=== PATIENT | female | born 1985 | race Caucasian/White ===

== ENCOUNTER 2025-07-19 01:34 | Day surgery (SDC) | payer OTHER, SELFPAY ==
[2025-07-10 09:53] VITALS: BMI 29.9
--- NOTE | 2025-07-10 10:03 | PC.NURSE ---
Report to the Outpatient Waiting Room, entrance under the green pavilion located off [facility], at time _0600_ on date _[id number]_. Planned Procedure Time: _0730_.? Time changes happen often and if your time is changed the preop area will call you the afternoon before. - You and your visitor will be asked to self-screen and do not enter if you have any COVID symptoms. Please call surgeon if you need to reschedule. - A mask is optional within the hospital at this time. Patients may have clear liquids (water, carbonated beverages, clear teas, apple juice) until 3 hours prior to surgery with a maximum of 20 ounces. - No food from midnight until time of surgery and no smoking, or chewing tobacco (or any form of nicotine). No chewing gum, candy or mints. Take only the following medications with a SIP of water on the morning of surgery: __Sertraline and if needed Alprazolam DO NOT STOP ANY OF YOUR OTHER PRESCRIPTION MEDICATIONS PRIOR TO SURGERY EXCEPT THE FOLLOWING Hold all vitamins and supplements for 3 days per anesthesiologist. Medications to discontinue per physician Date to take last dose Please no make-up, nail luxembourger, hairspray, perfume, deodorant, or body powder the day of surgery.? No jewelry (including any body piercings) or valuables the day of surgery, leave them at home.? Please take a shower or bath the night before, or the morning of, surgery with an antibacterial soap.? Wear comfortable, loose fitting clothing.? - Jewelry must be removed prior to entering the operating room.? Rings and piercings that are not removed may be cut off. - The hospital will not accept responsibility for valuables.? - Please leave all valuables, including medications, at home the day of surgery. If you are going home after surgery, a licensed cdl flatbed truck driver must drive you home.? - NO public transportation without another adult if you receive anesthesia. - We recommend that an adult stay with you for 24 hours following discharge. - We also recommend that you do not drive, make important decision, drink alcoholic beverages, or take any drugs that were not prescribed by your health care provider for at least 24 hours after your discharge time. Follow any additional instructions given to you from your surgeon. Telephone instructions given to __Romi__and asked if any additional questions and then verbalized understanding. Patient advised to call surgeon office or pre surgery nurse liaison [phone] if any additional questions.
--- OUTSIDE RECORDS SUMMARY | 2025-07-17 04:40 | XMS_ITS ---
Author Organization Formerly [facility] [place] ([address]) Address [address] [place] [address] Care Team Providers Care Log Chipper Operator Name Role Phone Nery Locke Primary Care Provider Tisha Medina Unavailable [phone] Emmett Harris Unavailable [phone] REASON FOR VISIT SCIT - Traditional Schedule Allergy immunotherapy Encounters Encounter Location Date Provider Diagnosis [facility] [address] [place] [address] 07/17/2025 Emmett Harris Allergic rhinitis due to pollen J30.1 ; Allergic rhinitis due to animal (cat) (dog) hair and dander J30.81 ; Other allergic rhinitis J30.89 and Other chronic allergic conjunctivitis H10.45 Assessments Encounter Date Diagnosis (ICD Code) Assessment Notes Treatment Notes Treatment Clinical Notes Section Notes 07/17/2025 Allergic rhinitis due to pollen (ICD-10 - J30.1) 07/17/2025 Allergic rhinitis due to animal (cat) (dog) hair and dander (ICD-10 - J30.81) 07/17/2025 Other allergic rhinitis (ICD-10 - J30.89) 07/17/2025 Other chronic allergic conjunctivitis (ICD-10 - H10.45) Plan Of Treatment Next Appt Details Follow Up: 1 Week, Reason: Provider Name:Emmett Harris , 07/24/2025 10:40:00 AM, [address] [place], [address], Progress Notes * Jacqui MENDOZAhDOB: 4 (40 yo F)Acc No.[id number]:07/17/2025 SCIT-Aeroallergen Patient: Romi BANGURA Provider: Shady Harris MD :1985 A ge:39 Y S ex:Female Date:07/17/2025 Address:[address] [place], [place] [id number] Pcp:MADHU Dexter Subjective: * Chief Complaints: * 1 . SCIT - Traditional Schedule Allergy immunotherapy. * HPI: * Introduction: The patient is here for scheduled immunotherapy. Please see the attached specialty form regarding the specifics of the administration of these vaccines. As per our protocol, they must undergo a screening health questionnaire (medication changes, reaction(s) to last immunotherapy dose(s), current health status, ACT (if appropriate), self-injectable epinephrine on patient(?) and peak flow (if appropriate)). Also, the patient must wait in our office for 30 minutes after receiving the vaccine(s). Furthermore, every patient must have an epinephrine pen (self-injectable) with them at the time of administration--and carry if for the following 1.5 hours after they leave our office. The patient must also have taken their antihistamine the day of the injection, preferably 2 hours prior. The consent form for SCIT (subcutaneous immunotherapy) is on file. * Medical History: Objective: * Vitals: Assessment: * Assessment: 1. A llergic rhinitis due to pollen - J30.1 (Primary) 2 . A llergic rhinitis due to animal (cat) (dog) hair and dander - J30.81 3 . O ther allergic rhinitis - J30.89 4 . O ther chronic allergic conjunctivitis - H10.45 Plan: * Treatment: * Follow Up: 1 Week * Billing Information: * Visit Code: * Procedure Codes: 39883 IMMUNOTHERAPY INJECTIONS. * Electronic signature of Alexus Harris MD, FAAAAI on 2025 at 01:37 AM CDT Sign off status: Pending * Provider: Shady Harris MD Date: 0 07/17/2025 Generated for Jessica watson/Sawyer/Lesa on: 2025 01:37 AM CDT History and Physical Notes * HPI (History of Present Illness) Category Sub-Category Detail Notes Category Not es *Introduction The patient is here for scheduled immunotherapy. Please see the attached specialty form regarding the specifics of the administration of these vaccines. As per our protocol, they must undergo a screening health questionnaire (medication changes, reaction(s) to last immunotherapy dose(s), current health status, ACT (if appropriate), self-injectable epinephrine on patient(?) and peak flow (if appropriate)). Also, the patient must wait in our office for 30 minutes after receiving the vaccine(s). Furthermore, every patient must have an epinephrine pen (self-injectable) with them at the time of administration--and carry if for the following 1.5 hours after they leave our office. The patient must also have taken their antihistamine the day of the injection, preferably 2 hours prior. The consent form for SCIT (subcutaneous immunotherapy) is on file.
[2025-07-19] VITALS (12 sets, daily range): BP systolic 117–147; BP diastolic 70–97; PULSE 78–114; RESP 10–18; TEMP 36.3–36.4; O2SAT 91–100
--- OUTSIDE RECORDS SUMMARY | 2025-07-19 01:37 | XMS_ITS | Clinical Summary ---
Author Organization [facility] Address [address] [address] Care Team Providers Care Security Installation Technician Name Role Phone Unavailable Primary Care Provider Unavailabl e Allergies No known active allergies Medications tirzepatide (Mounjaro) 2.5 mg/0.5 mL Pen Injector Inject 2.5 mg by subcutaneous injection every 7 days. 2 mL 10/08/2022 3:57 PM ETHNOARCHAEOLOGIST Active Social History Tobacco Use Types Packs/Day Years Used Date Smoking Tobacco: Never Assessed Comments Unknown Sex and Gender Information Value Date Recorded Sex Assigned at Not on file Legal Sex Female 3:34 PM ETHNOARCHAEOLOGIST Gender Identity Not on file Sexual Orientation Not on file Plan of Treatment Health Maintenance Due Date Last Done Comments DTAP/TDAP/TD VACCINES (1 - Tdap) 2003 HEPATITIS B VACCINES (1 of 3 - 19+ 3-dose series) 06/26 HPV/Cotest (21-29) 2005 HPV VACCINES (1 - 3-dose SCDM series) 2011 CERVICAL CANCER SCREENING 2014 HPV/Cotest (30-65) 2014 PAP SMEAR 2014 BREAST CANCER SCREENING 2024 INFLUENZA VACCINE (#1) 2025 Insurance RX [employer] RX Member Subscriber Plan / Payer (Ef fective 2022-Present) Name:Romi Draper Relation to Subscriber:Self Name:Romi Draper Subscriber ID:Not on file Payer ID:Not on file Group ID:[id number] Type:RX Commercial Address: [employer] Member Subscriber Plan / Payer (Ef fective for All Dates) Name:Marisadominique Romi Relation to Subscriber:Not on file Payer ID:Not on file Type:RX Commercial Address: [employer] Commercial [[id number]
--- OUTSIDE RECORDS SUMMARY | 2025-07-19 01:37 | XMS_ITS | Clinical Summary ---
Author Organization [facility] Address [address] [place] [address] Care Team Providers Care Lead Generation Specialist Name Role Phone Ricky La MD Primary Care Provider Unav ailable Source Comments [facility],non-owned Affiliates and Associated Physician Practices is amultiple site organization consisting of ambulatory clinics and hospital sitesin [place], [place], [place] and [place]. This disclosure is being madepursuant to the Care Everywhere program and may not contain all information available regarding this patient. Last updated 18.[facility] Allergies No known active allergies Medications * Be aware that medications may not be up to date on this document. Alwaysverify current medications with the patient. VITAMINS PO Take by mouth. Active ALPRAZolam (XANAX) 0.5 MG tablet Take one-half to one tablet by mouth once daily as needed. 02/02/2019 Active cetirizine (ZYRTEC ALLERGY) 10 MG gel capsule Active Multiple Vitamin (MULTI VITAMIN PO) Active sertraline (ZOLOFT) 50 MG tablet TAKE ONE AND ONE-HALF TABLETS BY MOUTH EVERY DAY 03/13/2019 Active Active Problems Problem Noted Date Diagnosed Date History of toxoplasmosis- IgG & IgM positive History of miscarriage 11/15/2012 Family History Medical History Relation Name Comments Diabetes Father Hypercholesterolemia Father Hypertension Father Hypertension Maternal Grandfather Diabetes Maternal Uncle Diabetes Paternal Aunt Heart Disease Paternal Grandfather Hypercholesterolemia Paternal Grandfather Hypertension Paternal Grandfather Cancer Paternal Grandmother cervica l Arthritis Neg Hx Bleeding Disorders Neg Hx Clotting Disorder Neg Hx Genetic/Metabolic Disease Neg Hx Kidney Disease Neg Hx Multiple Births Neg Hx Labor Neg Hx Sickle Cell Anemia Neg Hx Stroke Neg Hx Toxemia Neg Hx Tuberculosis Neg Hx Twins Neg Hx Relation Name Status Comments Brother Alive Father Alive Maternal Grandfather Alive Maternal Grandmother mva Maternal Uncle Mother Alive Paternal Aunt Paternal Grandfather Alive Paternal Grandmother Sister Alive Social History Tobacco Use Types Packs/Day Years Used Date Smoking Tobacco: Former Cigarettes Smokeless Tobacco: Never Alcohol Use Standard Drinks/Week Comments No 0 (1 standard drink = 0.6 oz pur e alcohol) Comments No Sex and Gender Information Value Date Recorded Sex Assigned at Female 01/14/2022 1:18 PM CDT Legal Sex Female 3:43 PM NICKEL OPERATOR Gender Identity Female 01/14/2022 1:18 PM CDT Sexual Orientation Not on file Last Filed Vital Signs Vital Sign Reading Time Taken Comments Blood Pressure 115/60 02/04/2016 12:57 PM CDT Pulse 105 02/04/2016 12:56 PM CDT Temperature - - Respiratory Rate 18 02/04/2016 12:57 PM CDT Oxygen Saturation 98% 11/18/2012 1:41 PM NICKEL OPERATOR Inhaled Oxygen Concentration - - Weight 70.3 kg (155 lb) 02/04/2016 12:57 PM CDT Height 154.9 cm (5' 1) 02/04/2016 12:56 PM CDT Body Mass Index 29.29 02/04/2016 12:56 PM CDT Plan of Treatment Health Maintenance Due Date Last Done Comments MAMMOGRAM 1985 HIV SCREENING 1999 HEPATITIS C SCREENING 07/15/2002 DTAP/TDAP/TD VACCINES (1 - Tdap) 2003 HEPATITIS B VACCINE (1 of 3 - 19+ 3-dose series) 2003 HPV VACCINE (1 - 3-dose SCDM series) 2011 LIPID TESTING 02/03/2024 02/02/2019 DEPRESSION SCREENING 10/25/2024 COVID-19 VACCINE (1 - 2023-2 5 season) 2025 INFLUENZA VACCINE (#1) 2025 08/10/2018 ZOSTER VACCINE (1 of 2) 2034 HIB VACCINE Aged Out No longer eligi ble based on patient's age to complete this topic MENINGOCOCCAL (Group B) VACC INE SHARED DECISION-MAKING Aged Out No longer eligibl e based on patient's age to complete this topic MENINGOCOCCAL GROUPS A/C/Y/W VACCINE Aged Out No longer eligible b ased on patient's age to complete this topic PNEUMOCOCCAL VACCINE Aged Out No long er eligible based on patient's age to complete this topic Insurance AETNA AETNA ANTHEM AETNA Care Teams Lead Generation Specialist Relationship Specialty Start Date End Date Ricky La MD PCP - General Family Medicine 02/04/16
--- OUTSIDE RECORDS SUMMARY | 2025-07-19 01:37 | XMS_ITS | Patient Health Record ---
Author Organization [facility] [place] ([address]) Address [address] [place] [address] Care Team Providers Care Gas Mask Inspector Name Role Phone Shiraz CHAWLA-Nery Santoro Primary Care Provider Tisha Mednia Unavailable [phone] Emmett Harris Unavailable [phone] Saul Hay Unavailable [phone] Archie Michele Unavailable [phone] Allergies No Known Allergies Reason For Referral No Information Medications Medication SIG (Take, Route, Frequency, Duration) Notes Start Date End Date Status EPIPEN 2-DM 0.3 mg as directed intramuscularly once; Duration: 30 days Active busPIRone HCl 10 MG 1 tab(s) orally 2 times a day; Duration: 30 day(s) 08/30/2023 Not-Taking BUSPIRONE 10 mg 1 tab(s) orally 2 times a day; Duration: 30 day(s) 08/30/2023 Not-Taking CHLORTHALIDONE 25 mg ; Duration: 90 Not-Taking SERTRALINE 100 mg 1 tab(s) orally once a day; Duration: 30 days 03/18/2021 Not-Taking Chlorthalidone 25 MG ; Duration: 90 Not-Taking Fluticasone Propionate 50 MCG/ACT 2 sprays intranasally once a day; Duration: 30 day(s) Not-Taking NASAL WASHES N/A as directed intranasally as needed; Duration: 30 Active VITAMIN D3 125 mcg 1 cap(s) orally once a day Not-Taking CETIRIZINE HYDROCHLORIDE 10 mg 1 tab(s) orally once a day Active EPIPEN 2-DM 0.3 mg as directed intramuscularly once; Duration: 30 days Not-Taking SIT (TRADITIONAL) variable per schedule SC per schedule; Duration: to be determined Active AUVI-Q 0.3 mg 0.3 mg intramuscularly once; Duration: 30 days Not-Taking FLUTICASONE PROPIONATE 50 mcg/inh 2 sprays intranasally once a day; Duration: 30 day(s) Active XANAX 0.5 mg 1 tab(s) orally 3 times a day Not-Taking Auvi-Q 0.3 MG/0.3ML 0.3 mg intramuscularly once; Duration: 30 days Active Xanax 0.5 MG 1 tab(s) orally 3 times a day Active EpiPen 2-Dm 0.3 mg as directed intramuscularly once; Duration: 30 days Active Adderall XR 5 MG as directed Orally 04/16/2025 Active Sertraline HCl 50 MG 1 tab(s) orally once a day; Duration: 30 days 03/18/2021 Active Vitamin D3 125 MCG 1 CAP(S) ORALLY ONCE A DAY *Please review and pick correct strength-formula tion from [facility] options. If intended option is not shown, discontinue and re-order from Quick Search* Active Cetirizine HCl 10 MG 1 tab(s) orally once a day Active Immunizations Vaccine Route Administration Date Status Comme nts Flucelvax Unknown 08/02/2019 Refused NOC Flucelevax Quadrivalent Unknown 08/27/2020 Administ ered Covid 19 (Pfizer) Unknown 10/10/2020 Administered Covid 19 (Pfizer) Unknown 11/01/2020 Administered Social History Tobacco Use: Social History Observation Description Date Details (start date - stop date) Former Smoker NA - NA Smoking Smart Form: Question Answer Notes Are you a: former smoker How long it has been since you last smoked? 5-10 years Tobacco Control (Standard) Question Answer Notes Tobacco use: Former smoker Problems Problem Type SNOMED Code ICD Code Onset Dates Problem Status W/U Status Risk Notes Problem Chronic allergic conjunctivitis (06856715) Other chronic allergic conjunctivitis (H10.45) Active confirmed Problem Essential hypertension (36792510) Essential (primary) hypertension (I10) Active confirmed Problem Allergic rhinitis caused by pollen (disorder) (49473885) Allergic rhinitis due to pollen (J30.1) Active confirmed Problem Allergic rhinitis caused by animal hair and dander (494442352326915) Allergic rhinitis due to animal (cat) (dog) hair and dander (J30.81) Active confirmed Problem Allergic rhinitis (70220217) Other allergic rhinitis (J30.89) Active confirmed Problem Allergic rhinitis caused by animal hair and dander (241228946310660) Allergic rhinitis due to animal (cat) (dog) hair and dander (J30.81) Active confirmed Problem Elevated blood pressure reading without diagnosis of hypertension (087263311) Elevated blood-pressure reading, without diagnosis of hypertension (R03.0) Active confirmed Vital Signs Blood pressure diastolic 87 mm Hg 04/16/2025 Oximetry 98 % 04/16/2025 Height 62.5 in 04/16/2025 Blood pressure systolic 123 mm Hg 04/16/2025 Weight 158.8 lbs 04/16/2025 BMI 28.58 kg/m2 04/16/2025 Encounters Encounter Location Date Provider Diagnosis [address] [address] 06/12/2025 Emmett Steven Allergic rhinitis due to pollen J30.1 ; Allergic rhinitis due to animal (cat) (dog) hair and dander J30.81 ; Other allergic rhinitis J30.89 and Other chronic allergic conjunctivitis H10.[address] [address] 05/15/2025 Emmett Steven Allergic rhinitis due to pollen J30.1 ; Allergic rhinitis due to animal (cat) (dog) hair and dander J30.81 ; Other allergic rhinitis J30.89 and Other chronic allergic conjunctivitis H10.[address] [address] 03/20/2025 Emmett Steven Allergic rhinitis due to pollen J30.1 ; Allergic rhinitis due to animal (cat) (dog) hair and dander J30.81 ; Other allergic rhinitis J30.89 and Other chronic allergic conjunctivitis H10.[address] [address] 02/20/2025 Emmett Steven Allergic rhinitis due to pollen J30.1 ; Allergic rhinitis due to animal (cat) (dog) hair and dander J30.81 ; Other allergic rhinitis J30.89 and Other chronic allergic conjunctivitis H10.45 [facility] [address] [place] [address] 01/22/2025 Emmett Harris Allergic rhinitis due to pollen J30.1 ; Allergic rhinitis due to animal (cat) (dog) hair and dander J30.81 ; Other allergic rhinitis J30.89 and Other chronic allergic conjunctivitis H10.45 [facility] [place] [address] [place] [address] 12/18/2024 Emmett Harris Allergic rhinitis due to pollen J30.1 ; Allergic rhinitis due to animal (cat) (dog) hair and dander J30.81 ; Other allergic rhinitis J30.89 and Other chronic allergic conjunctivitis H10.45 [facility] [address] [place] [address] 11/15/2024 Emmett Harris Allergic rhinitis due to pollen J30.1 ; Allergic rhinitis due to animal (cat) (dog) hair and dander J30.81 ; Other allergic rhinitis J30.89 and Other chronic allergic conjunctivitis H10.45 [facility] - [place] [address] [place] [address] 11/09/2024 Emmett Harris Allergic rhinitis due to pollen J30.1 ; Allergic rhinitis due to animal (cat) (dog) hair and dander J30.81 ; Other allergic rhinitis J30.89 and Other chronic allergic conjunctivitis H10.45 [facility] [address] [place] [address] 11/01/2024 Emmett Harris Allergic rhinitis due to pollen J30.1 ; Allergic rhinitis due to animal (cat) (dog) hair and dander J30.81 ; Other allergic rhinitis J30.89 and Other chronic allergic conjunctivitis H10.45 [facility] [place] [address] [place] [address] 09/26/2024 Emmett Harris Allergic rhinitis due to pollen J30.1 ; Allergic rhinitis due to animal (cat) (dog) hair and dander J30.81 ; Other allergic rhinitis J30.89 and Other chronic allergic conjunctivitis H10.45 [facility] [place] [address] [place] [address] 08/21/2024 Emmett Harris Allergic rhinitis due to pollen J30.1 ; Allergic rhinitis due to animal (cat) (dog) hair and dander J30.81 ; Other allergic rhinitis J30.89 and Other chronic allergic conjunctivitis H10.45 [facility] [address] [place] [address] 04/16/2025 Archie Michele Allergic rhinitis due to pollen J30.1 ; Allergic rhinitis due to animal (cat) (dog) hair and dander J30.81 ; Other allergic rhinitis J30.89 ; Other chronic allergic conjunctivitis H10.45 ; Pruritus, unspecified L29.9 and Essential (primary) hypertension I10 Assessments Encounter Date Diagnosis (ICD Code) Assessment Notes Treatment Notes Treatment Clinical Notes Section Notes 08/21/2024 Allergic rhinitis due to pollen (ICD-10 - J30.1) 09/26/2024 Allergic rhinitis due to pollen (ICD-10 - J30.1) 11/01/2024 Allergic rhinitis due to pollen (ICD-10 - J30.1) 11/09/2024 Allergic rhinitis due to pollen (ICD-10 - J30.1) 11/15/2024 Allergic rhinitis due to pollen (ICD-10 - J30.1) 12/18/2024 Allergic rhinitis due to pollen (ICD-10 - J30.1) 01/22/2025 Allergic rhinitis due to pollen (ICD-10 - J30.1) 02/20/2025 Allergic rhinitis due to pollen (ICD-10 - J30.1) 03/20/2025 Allergic rhinitis due to pollen (ICD-10 - J30.1) 04/16/2025 Allergic rhinitis due to pollen (ICD-10 - J30.1) Romi clearly suffers from atopic disease based upon our prior skin testing. Accordingly, we have introduced a new, aggressive medication regimen, discussed nasal washes and allergy-specific avoidance measures. She continues on MM since 09/13. Denies large local reactions since last visit. Using topical hydrocortisone and ice packs with benefit. Discussed increasing dosing in peak seasons PRN as she reported increase in sneezing, ocular pruritus 1 week prior to dosing this past Fall. Today also reporting increased pruritus 1-2 days prior to last month's SCIT dosing. Dosing tolerated today w/o issues. -Continue medications as listed above. -Recommend increasing SCIT frequency to Q3 week intervals during peak seasons. -AIE on hand. Patient was instructed that epinephrine needs to be carried to each immunotherapy visit and should be carried 2 hrs after dosing. -Return in 1 YEAR for interval evaluation 05/15/2025 Allergic rhinitis due to pollen (ICD-10 - J30.1) 06/12/2025 Allergic rhinitis due to pollen (ICD-10 - J30.1) 04/16/2025 Allergic rhinitis due to animal (cat) (dog) hair and dander (ICD-10 - J30.81) Follow allergen avoidance, meds and continue SCIT as an adjunctive treatment to current regimen 06/12/2025 Allergic rhinitis due to animal (cat) (dog) hair and dander (ICD-10 - J30.81) 05/15/2025 Allergic rhinitis due to animal (cat) (dog) hair and dander (ICD-10 - J30.81) 04/16/2025 Other allergic rhinitis (ICD-10 - J30.89) Follow allergen avoidance, meds and continue SCIT as an adjunctive treatment to current regimen 03/20/2025 Allergic rhinitis due to animal (cat) (dog) hair and dander (ICD-10 - J30.81) 02/20/2025 Allergic rhinitis due to animal (cat) (dog) hair and dander (ICD-10 - J30.81) 01/22/2025 Allergic rhinitis due to animal (cat) (dog) hair and dander (ICD-10 - J30.81) 12/18/2024 Allergic rhinitis due to animal (cat) (dog) hair and dander (ICD-10 - J30.81) 11/15/2024 Allergic rhinitis due to animal (cat) (dog) hair and dander (ICD-10 - J30.81) 11/09/2024 Allergic rhinitis due to animal (cat) (dog) hair and dander (ICD-10 - J30.81) 11/01/2024 Allergic rhinitis due to animal (cat) (dog) hair and dander (ICD-10 - J30.81) 09/26/2024 Allergic rhinitis due to animal (cat) (dog) hair and dander (ICD-10 - J30.81) 08/21/2024 Allergic rhinitis due to animal (cat) (dog) hair and dander (ICD-10 - J30.81) 08/21/2024 Other allergic rhinitis (ICD-10 - J30.89) 09/26/2024 Other allergic rhinitis (ICD-10 - J30.89) 11/01/2024 Other allergic rhinitis (ICD-10 - J30.89) 11/09/2024 Other allergic rhinitis (ICD-10 - J30.89) 11/15/2024 Other allergic rhinitis (ICD-10 - J30.89) 12/18/2024 Other allergic rhinitis (ICD-10 - J30.89) 01/22/2025 Other allergic rhinitis (ICD-10 - J30.89) 02/20/2025 Other allergic rhinitis (ICD-10 - J30.89) 03/20/2025 Other allergic rhinitis (ICD-10 - J30.89) 04/16/2025 Other chronic allergic conjunctivitis (ICD-10 - H10.45) Given ocular signs and symptoms I encouraged allergy avoidance measures and meds as above. If symptoms persist, consider adding additional medications including intraocular antihistamine/mast cell stabilizer, PRN and continue SCIT as an adjunctive measure 05/15/2025 Other allergic rhinitis (ICD-10 - J30.89) 06/12/2025 Other allergic rhinitis (ICD-10 - J30.89) 05/15/2025 Other chronic allergic conjunctivitis (ICD-10 - H10.45) 06/12/2025 Other chronic allergic conjunctivitis (ICD-10 - H10.45) 04/16/2025 Pruritus, unspecified (ICD-10 - L29.9) Full body itching that improved with SCIT dosing and no interval recurrence. Also reporting ongiong, intermittent itching to specific area on mid-back, in between shoulder blades. Of note, this also improved with SCIT dosing. No evidence of rash, urticaria or other skin changes. Current products consist of Olay moisturizer, Gain laundry, Bounce dryer sheets, Olay soap. - Recommend regimen of scent-free and dye-free products and ALl Free and Clear Laundry detergent. Avoid dryer sheets. Vanicream samples given. - Consider laboratory workup for ongoing symptoms pending dermatology evaluation. - Fiollow-up in 12 months. 03/20/2025 Other chronic allergic conjunctivitis (ICD-10 - H10.45) 02/20/2025 Other chronic allergic conjunctivitis (ICD-10 - H10.45) 01/22/2025 Other chronic allergic conjunctivitis (ICD-10 - H10.45) 12/18/2024 Other chronic allergic conjunctivitis (ICD-10 - H10.45) 11/15/2024 Other chronic allergic conjunctivitis (ICD-10 - H10.45) 11/09/2024 Other chronic allergic conjunctivitis (ICD-10 - H10.45) 11/01/2024 Other chronic allergic conjunctivitis (ICD-10 - H10.45) 09/26/2024 Other chronic allergic conjunctivitis (ICD-10 - H10.45) 08/21/2024 Other chronic allergic conjunctivitis (ICD-10 - H10.45) 04/16/2025 Essential (primary) hypertension (ICD-10 - I10) BP elevated today without symptoms of urgency or emergency. Continue serial checks and follow-up with PCP 04/16/2025 Other Plan Of Treatment Next Appt Details Provider Name:Emmett JimenesElizabet Harris , 07/24/2025 10:40:00 AM, [address] [place] [address], [phone], Insurance Providers Payer Name Payer Address Payer Phone Subscriber Number Group Number Insured Name Patient Relationship to Insured Coverage Start Date Coverage End Date [facility] [address] [address] [place], [place] [phone] [id number] Romi Draper Self - patient is the insured [employer] [facility] [address] [place] [address] [id number] William Draper Spouse - patient is the spouse of the insured Medical (General) History Medical History History ICD Code Anxiety Depression Spinal Meningitis Essential (primary) hypertension I10 Surgical History Surgery Date(Month/Year) Carpal Tunnel (Right wrist) 10/20/2013 lumpectomy 04/2024 Hospitalization History Reason Date(Month/Year) Palpitations/Syncope 05/07/2010 Vertigo 06/17/2017 Child 08/05/2016 Child 06/15/2013
--- OUTSIDE RECORDS SUMMARY | 2025-07-19 01:37 | XMS_ITS | Patient Health Record ---
Author Organization [facility] Address [address] [place], [place] [id number] Care Team Providers Care Discharge Rn Name Role Phone JESSEE ALFORD Unavailable [phone] ShirazNery Unavailable Unavailable Reason For Referral No Information Medications Medication SIG (Take, Route, Frequency, Duration) Notes Start Date End Date Status sertraline 100 MG Oral Tablet [Zoloft] ORAL sertraline 100 MG Oral Tablet [Zoloft]Original Medicationsertraline 100 MG Oral Tablet [Zoloft] *Reorder from [employer] for eRx and Interaction Alerts* 08/28/2014 Active Cyclessa 28 Day Pack ORAL Cyclessa 28 Day PackOriginal MedicationCyclessa 28 Day Pack *Reorder from [facility] for eRx and Interaction Alerts* 08/28/2014 Active Plan Of Treatment No Information Insurance Providers Payer Name Payer Address Payer Phone Subscriber Number Group Number Insured Name Patient Relationship to Insured Coverage Start Date Coverage End Date Continuous Improvement Manager s Health Plan [address] [id number] IRISH MENDOZA Self - patient is the insured [facility] [employer] [address] [place] [phone] [id number] PAULINA MENDOZA Spouse - patient is the spouse of the insured
[2025-07-19] MEDS: LACTATED RINGERS 1,000 ML 30 ML IV CONT ×2 (06:30→10:09)
[2025-07-19] MEDS: TRANEXAMIC ACID 1,000MG/ISO100 1,000 MG/100 ML BAG 200 MG IVPB (06:32)
--- NOTE | 2025-07-19 06:54 | WPDANESEPPF ---
Anes - Initial Pre Proc Eval Procedure: Operation Date: 07/19/25 07:30 Proposed Procedures p Bilateral Breast Mastopexy - José Miguel Pierce MD s Bilateral Breast Augmentation - José Miguel Pierce MD Date/Time: 07/19/25 06:54 Surgeon: José Miguel Pierce MD Pre Op Diagnosis: Breast Ptosis, Micromastia Patient Data Age: 40 Gender: F Height: 1.55 m Weight: 73.4 kg Last Vital Signs Temp 36.3 C L 07/19/25 06:10 Pulse 80 07/19/25 06:10 Resp 18 07/19/25 06:10 BP 138/95 H 07/19/25 06:10 Pulse Ox 98 07/19/25 06:10 O2 Del Method Room Air 07/19/25 06:10 Allergies Allergy/AdvReac Type Severity Reaction Status Date / Time No Known Allergies Allergy Verified 07/19/25 06:43 Home Medications ?Medication ?Instructions ?Recorded ?Confirmed ?Type alprazolam 0.5 mg tablet 0.5 mg PO QID PRN anxiety 07/10/25 07/19/25 History brexpiprazole 0.5 mg tablet 0.5 mg PO DAILY 07/10/25 07/19/25 History (Rexulti) cetirizine 10 mg tablet (Zyrtec) 10 mg PO DAILY 07/10/25 07/19/25 History sertraline 100 mg tablet 100 mg PO DAILY 07/10/25 07/19/25 History Laboratory Tests 07/19/25 06:15 Cotinine Negative Patient hx anesthesia problems: none Family hx anesthesia problems: none Results Review: All pre-operative results and documents have been reviewed as part of the pre-operative evaluation. [facility] Past Medical History Medical History (Updated 07/19/25 @ 06:55 by Zuhair Gerardo MD) Paroxysmal SVT (supraventricular tachycardia) Obesity Surgical History Surgical History H/O cardiac radiofrequency ablation Social History Social History Years smoked: 20 Smoking status: Former smoker Tobacco type: cigarettes Smoking end date: 07/10/23 Alcohol intake: current Living arrangements: with family Spiritual care concerns: No Anes - Eval Final PreProcedure Day of Procedure 07/19/25 06:54 Patient weight: obese Heart: regular rate and rhythm Lungs: clear to auscultation Airway: Mallampati scale class II Neurological: alert and oriented Last oral intake: >/= 8 hours ASA classification: II Emergent: no Anesthetic plan: proceed Anesthesia type and monitoring: general LMA and standard monitoring Results Review: All pre-operative results and documents have been reviewed as part of the pre-operative evaluation. Informed Consent: The patient's anesthetic plan and its attendant risks and benefits were discussed with the patient/family/POA. Questions were solicited and answers provided to the satisfaction of the patient/family/POA.
[2025-07-19] MEDS: SCOPOLAMINE 1 MG PATCH 1 PATCH TRANSDERM (07:25)
--- NOTE | 2025-07-19 07:26 | WPDHPUPDATE1 ---
History and Physical Update Update Date/Time: 07/19/25 07:26 History and Physical has been reviewed, including an updated exam of the patient. There are NO changes in the patient's condition. Risks, benefits, and alternatives have been discussed and questions answered. Patient agrees to proceed with procedure.
--- NOTE | 2025-07-19 07:26 | W.PM.PROC2 ---
Procedure Note - Detailed Date of Procedure 07/19/25 Pre-op Diagnosis Breast Ptosis, Micromastia Post-op Diagnosis Same Procedure Performed Bilateral augmentation mastopexy Surgeon José Miguel Pierce MD Anesthesia General Findings Inverted T Superior Medial Pedicle Bilateral Ethel Mckeon SoftTouch 485cc Right: REF# [id number] SN [id number] Left: REF# [id number] Lipoaspirate: 125 cc Description of Procedure She is here today for bilateral breast augmentation mastopexy. Previously and again today the risks, benefits, alternatives were discussed in extensive detail. I wanted her to be very realistic about the risks involved as well as expectations. We discussed aftercare and what to monitor for. Made sure answered all of her questions to her satisfaction today and consent was obtained. Marked in the preoperative holding area with their verification. The patient was taken to the operating room placed supine on the operating table. Anesthesia was provided by anesthesiology. A surgical time-out was taken. She was prepped and draped in a standard sterile fashion. Tumescent was utilized laterally to provide field block Tegaderm nipple Guerrero were placed. A 15 blade used to make an incision just superior to the inframammary fold leaving a cusp of de-epithelized tissue at the t junction. Dissection was continued until the chest wall as identified. I elevated a subfascial pocket in the appropriate dimensions based on our preoperative planning for the implant. I then copiously irrigated with saline solution and verified a strict hemostasis. Next the use a triple antibiotic and Betadine containing solution to irrigate the pocket. I washed my gloves with the triple antibiotic and Betadine solution. We washed the implant immediately upon opening it with this solution and only opened it when we needed it. I used implant funnel and no-touch technique. The implant was introduced into the pocket using the funnel. Having verified positioning of the implant this was closed using 2-0 PDS. I tailor tacked the breast into position. Placed her in a sitting position. Verified the nipple-areolar location based on preoperative planning as well as intraoperative observations and measurements in full agreement. Suction lipectomy was completed laterally with a 4mm purvi cannula. This was based on preoperative planning, intraoperative observation, and rolling pinch which was in full agreement. She was placed supine. I de-epithelialized the pedicle. I then removed the inferior central portion of the breast need making sure the implant was well protected. I elevated medial and lateral tissue flaps as well for planned closure. Secured the IMF with 2-0 PDS. On the left there was concern of a possible implant injury so out of abundance of caution the implant was removed, irrigated the pocket with betadine solution and a new implant placed (in the same technique as above). I ensured the IMF was secured with 2-0 PDS following replacement. Wasted implant Ethel Mckeon [facility] REF# [id number]. I closed along the IMF with 2-0 PDS. Along the vertical with 2-0 PDS. I closed around the areola and the vertical incision with 3-0 Monocryl. 3-0 Stratafix along the IMF. I finally closed everything with running subcuticular 4-0 Monocryl and tissue glue. Fluffs and surgical bra were placed. Estimated Blood Loss 30 Drains No Packing No Pathology None sent Complications No immediate complications Condition Stable Disposition PACU
[2025-07-19] MEDS: NACL 0.9% IRRIG POUR BOTTLE 900 ML, GENTAMICIN SULFATE INJ 160 MG, ceFAZolin 2 GM, POVI... IRRIGATION (07:30)
[2025-07-19] MEDS: ceFAZolin 2 GM in SODIUM CHLORIDE 0.9% IV 50 ML 100 ML IVPB (07:30)
[2025-07-19] MEDS: LACTATED RINGERS IRRIG 1,000 ML, LIDOCAINE 1% LOCAL INJ 50 ML, EPINEPHrine HCL INJ 1 MG... INFILTRATE (07:54)
[2025-07-19] MEDS: fentaNYL CITRATE INJ (*CRX) 100 MCG/2 ML VIAL 25 MCG IV PUSH ×2 (11:18→11:20)
[2025-07-19] MEDS: oxyCODONE HCL (*CRX) 5 MG TAB IR PO (12:04)
== END 2025-07-19 12:48 | disposition home or self-care (01) ==
PROVIDERS: PCP Nurse Practitioner; Visit Provider Surgery Plastic and Reconstructive Surgery
PROC: (CPT 19316; principal; 2025-07-19 07:30)
PROC: (CPT 19316; 2025-07-19 07:30)
DX: Z41.1 Encounter for cosmetic surgery (principal); N64.81 Ptosis of breast; N64.82 Hypoplasia of breast; I10 Essential (primary) hypertension; E78.00 Pure hypercholesterolemia, unspecified; I49.9 Cardiac arrhythmia, unspecified; I47.10 Supraventricular tachycardia, unspecified; F32.A Depression, unspecified; E66.9 Obesity, unspecified; Z68.30 Body mass index [BMI] 30.0-30.9, adult; Z79.891 Long term (current) use of opiate analgesic; Z98.890 Other specified postprocedural states; Z87.891 Personal history of nicotine dependence; Z86.79 Personal history of other diseases of the circulatory system
CPT/HCPCS: 19316; 19325; 80307; J0690; A9270; J0166; J1100; J1171; J1200; J1580; J1596; J2003; J2004; J2250; J2371; J2405; J2704; J3010; J7120